=== PATIENT | male | born 1930 | race Caucasian/White ===

== ENCOUNTER 2017-01-19 06:59 | Inpatient (IN) | payer OTHER ==
[2017-01-05 11:15] VITALS: BMI 27.0
--- NOTE | 2017-01-05 11:43 | PAT Medication Instructions ---
Service Date Jan 05, 2017. Current Home Medication List Aspirin (Aspirin Ec), 81 MG PO NOON Pravastatin (Pravachol ), 40 MG PO NOON Tamsulosin Hcl (Flomax), 0.4 MG PO QPM Medication Instructions For Your Scheduled Surgery - Continue as directed: Aspirin (Aspirin Ec), 81 MG PO NOON (okay to continue per surgeon) Pravastatin (Pravachol ), 40 MG PO NOON Tamsulosin Hcl (Flomax), 0.4 MG PO QPM If you have any questions please call us at [phone] or [phone] or [phone]
--- NOTE | 2017-01-05 12:28 | DIAGNOSTIC IMAGING REPORT ---
CHEST 2 VIEWS ROUTINE CLINICAL HISTORY: pat preoperative evaluation COMPARISON STUDY: None FINDINGS: Mild bibasilar atelectasis. Lungs otherwise appear clear. No evidence for cardiac enlargement. IMPRESSION: Bibasilar atelectasis. Otherwise negative study The above report was generated using voice recognition software. It may contain grammatical, syntax or spelling errors. Electronically signed by: Kurtis Grover M.D. 01/05/2017 12:27 PM Dictated Date/Time: 01/05/2017 12:27 PM
[2017-01-05 12:59] LABS: BASO % 0.5 %; BASO ABS # 0.03 K/uL (0-0.2); COMPLETE YES; EOS % 2.8 %; HEMATOCRIT 44.5 % (42-52); IG% 0.3 %; LYMPH % 18.9 %; LYMPH ABS # 1.15 K/uL (1.2-3.4); MEAN CELL VOLUME 90.4 fL (80-100); MEAN CORPUSCULAR HEMOGLOBIN 30.1 pg (25-34); MEAN CORPUSCULAR HGB CONC 33.3 g/dl (32-36); MEAN PLATELET VOLUME 9.7 fL (7.4-10.4); MONO % 7.1 %; NEUT % 70.4 %; PLATELET COUNT 147 K/uL (130-400); RED BLOOD COUNT 4.92 M/uL (4.7-6.1); WHITE BLOOD COUNT 6.09 K/uL (4.8-10.8)
[2017-01-05 13:03] LABS: URINE APPEARANCE CLEAR (CLEAR); URINE BILIRUBIN NEG (NEG); URINE COLOR YELLOW; URINE EPITHELIAL CELL AUTO 0-5 /lpf (0-5); URINE NITRITE NEG (NEG); UROBILINOGEN NEG (NEG)
[2017-01-05 13:04] LABS: MANUAL MICROSCOPIC REQUIRED? NO; REVIEW REQ? NO
[2017-01-05 13:09] LABS: BUN/CREATININE RATIO 20.9 (10-20); CALCIUM 8.9 mg/dl (8.5-10.1); CREATININE 1.1 mg/dl (0.60-1.40); POTASSIUM 4.5 mmol/L (3.5-5.1); PROTHROMBIN TIME (PATIENT) 11.2 SECONDS (9.0-12.0)
--- NOTE | 2017-01-18 17:54 | HISTORY & PHYSICAL EXAMINATION ---
DATE OF ADMISSION: 01/19/2017 CHIEF COMPLAINT: Primary osteoarthritis of the right hip. HISTORY OF PRESENT ILLNESS: Dilip is a very pleasant 86-year-old male who has been dealing with chronic right hip pain for several years. X-rays and clinical examination were diagnostic for primary osteoarthritis of the right hip. After failing years of conservative treatment, he has elected to proceed with a right total hip arthroplasty. PAST MEDICAL HISTORY: Hyperlipidemia. PAST SURGICAL HISTORY: Significant for sinus surgery. ALLERGIES: None. MEDICATIONS: Include pravastatin 40 mg daily, tamsulosin 0.4 mg daily, and aspirin 81 mg daily. FAMILY HISTORY: Noncontributory. SOCIAL HISTORY: The patient is , rarely drinks, and is moderately active. REVIEW OF SYSTEMS: The patient complains of right hip pain. All other pertinent review of systems are negative. PHYSICAL EXAMINATION: GENERAL: He is awake, alert and oriented x3. He is in no apparent distress. He is very pleasant. HEENT: Pupils are equal, round and reactive to light. Extraocular movements intact. Oral mucosa is pink and moist. HEART: Regular rate per radial pulse. LUNGS: Mely symmetrically bilaterally with no audible breath sounds. ABDOMEN: Soft, nontender, nondistended. MUSCULOSKELETAL: On physical examination of the right hip, he has about 100 degrees of flexion, 30 degrees of external rotation, 20 degrees of internal rotation. He does have pain at end range of motion. He is a tall, thin man and he can lie flat. IMAGING: X-rays of the right hip do show advanced osteoarthritis of the hip with joint space narrowing and osteophyte formation. IMPRESSION: Primary osteoarthritis of the right hip. PLAN: We will proceed with an anterior right total hip arthroplasty using a Biomet Taperloc stem. Postoperatively, he will be started on aspirin 325 mg twice a day for DVT prophylaxis and kept in the hospital for postoperative medical management.
[2017-01-19] VITALS (7 sets, daily range): BP systolic 114–161; BP diastolic 60–82; PULSE 54–109; TEMP 36.2–37; O2SAT 91–98; Ht 193 cm; Wt 102.6 kg
[~2017-01-19] VITALS: Ht 193 cm; Wt 102.6 kg
[2017-01-19] MEDS: TRANEXAMIC ACID INJ 1,000 MG in SODIUM CHLORIDE 0.9% 100ML 100 ML IV SCH ×2 (06:00→06:30)
[~2017-01-19 06:59] MED LIST: ACETAMINOPHEN 500 MG TAB PO SCH; ASPI81TA28 PO; FAMOTIDINE 20 MG TAB PO SCH; GABAPENTIN 300 MG CAP PO SCH; LACTATED RINGER'S 1000ML 1,000 ML IV SCH; PRAV20TA PO; ROPIVACAINE 5MG/ML 30 ML 150 MG, BUPIVACAINE/EPINEPHR 0.5% MPF 30 ML, KETOROLAC TROMETH... INFIL SCH; TAMS0.4C38 PO; VANCOMYCIN INJ 1,500 MG in SODIUM CHLORIDE 0.9% 500ML 500 ML IV SCH
[2017-01-19] MEDS ORDERED: BUPIVACAINE 0.5 % 5 MG/1 ML PF 10ML VIAL ONE (07:50)
[2017-01-19] MEDS ORDERED: FENTANYL CITRATE INJ 50 MCG/1 ML 2 ML VIAL ONE (08:08)
[2017-01-19] MEDS ORDERED: PROPOFOL IV EMULSION 10 MG/ML 20 ML VIAL IV ONE ×2 (08:08→09:02)
[2017-01-19] MEDS ORDERED: MIDAZOLAM HCL 1 MG/ML 2ML VIAL ONE (08:08)
--- NOTE | 2017-01-19 09:42 | History & Physical Bridge Note ---
H&P Re-Evaluation Bridge Note: I have examined the patient, reviewed the History & Physical and in the interval since the performance of the History & Physical I have noted the following changes of clinical significance: No changes noted
[2017-01-19] MEDS ORDERED: BACITRACIN 50000 UNIT VIAL ONE (09:59)
[2017-01-19] MEDS ORDERED: ORTHO JOINT ANESTHETIC ONE (09:59)
[2017-01-19] MEDS ORDERED: NURSING VERBAL MED ORDER ONE ×2 (10:15→14:30)
[2017-01-19] MEDS ORDERED: PHENYLEPHRINE 100MCG/ML 5ML SYR ONE (11:19)
--- NOTE | 2017-01-19 12:10 | DIAGNOSTIC IMAGING REPORT ---
RIGHT HIP UNILATERAL 1 VIEW CLINICAL HISTORY: RT ANTERIOR TOTAL Right. Right hip prosthesis. COMPARISON STUDY: None. FINDINGS: Total fluoroscopy time is 43 seconds. 4 fluoroscopic spot images of the right hip. Initial images demonstrate severe osteoarthritis within the right hip. This is followed by placement of a right total hip arthroplasty. The hardware appears intact. No fracture or dislocation. IMPRESSION: Fluoroscopy provided for a right total hip arthroplasty. Electronically signed by: Jamar Crump M.D. 01/19/2017 12:09 PM Dictated Date/Time: 01/19/2017 12:08 PM
--- NOTE | 2017-01-19 12:26 | [facility] Post Operative Brief Note ---
Immediate Operative Summary Operative Date Jan 19, 2017. Pre-Operative Diagnosis Primary Osteoarthritis Right Hip Post-Operative Diagnosis Primary Osteoarthritis Right Hip Procedure(s) Performed Right Anterior Total Hip Arthroplasty Uncemented Surgeon Dr Finn Rasmussen Calciner Operator Helper Surgeon(s) Pieter Heredia Estimated Blood Loss 350ml Findings as above Specimens As per Surgeon A. Right Femoral Head Complication(s) None Disposition Recovery Room / PACU
[2017-01-19] MEDS ORDERED: ONDANSETRON INJ 2 MG/ML 2 ML VIAL IV PRN ×2 (12:30→13:00)
[2017-01-19] MEDS ORDERED: BISACODYL 10 MG SUPP PR PRN (12:30)
[2017-01-19] MEDS ORDERED: MoRPHine SULFATE 2 MG/ML CARP IV PRN (12:30)
[2017-01-19] MEDS ORDERED: MAGNESIUM HYDROXIDE SUSP 30 ML UDC PO PRN (12:30)
[2017-01-19] MEDS ORDERED: OXYCODONE HCL IR 5 MG TAB (IMMEDIATE RELEASE) PO PRN (12:30)
[2017-01-19] MEDS ORDERED: SILVER SULFADIAZINE 1% CR 50 GM JAR EXT PRN (12:30)
[2017-01-19] MEDS ORDERED: METOCLOPRAMIDE HCL INJ 5 MG/ML 2 ML VIAL IV PRN (12:30)
[2017-01-19] MEDS ORDERED: SOD PHOSPHATE/SOD BIPHOSPHATE ENEMA 132 ML BTL PR PRN (12:30)
[2017-01-19] MEDS ORDERED: DEXAMETHASONE SOD INJ 4 MG/ML VIAL ONE (12:38)
[2017-01-19] MEDS ORDERED: ONDANSETRON INJ 2 MG/ML 2 ML VIAL ONE (12:38)
--- NOTE | 2017-01-19 12:50 | OPERATIVE REPORT ---
DATE OF OPERATION: 01/19/2017 PREOPERATIVE DIAGNOSIS: Primary osteoarthritis of the right hip. PROCEDURE: Right total hip arthroplasty through an anterior approach. SURGEON: Dr. Finn Rasmussen. FINE HAIRER: Pieter Heredia PA-C, whose assistance was necessary for retraction and closure. ANESTHESIA: Spinal. COMPLICATIONS: None. CONDITION: Stable to PACU. IMPLANTS USED: I used a Biomet Taperloc total hip arthroplasty system with a size 18 press-fit Taperloc stem, a size 58 G7 cup with a single 20 mm screw and a 40 mm G7 liner and a 40 +3 ceramic head. INDICATIONS: Alex is a pleasant 86-year-old male who presented to my office with chronic bilateral hip pain, right greater than left. After failing extensive conservative treatment, he elected to undergo a total hip arthroplasty. X-rays and clinical examination were diagnostic for primary osteoarthritis of the hip. OPERATION AND FINDINGS: On 01/19/2017 he arrived at [facility] for the above procedure. He was seen in the preoperative holding area and the operative extremity was identified and signed. He was given a preoperative antibiotic and a spinal anesthetic. He was taken back to the operating room, laid on the table in supine position and given basic sedation. His right leg was then brought out to a Purist leg positioner. The right hip was then prepped and draped in sterile fashion. Time-out was done and the patient and operative extremity was properly identified. An anterior approach was used. Dissection was taken down through the tensor fascia and the tensor was retracted laterally and the sartorius retracted medially. The hip capsule was exposed. The reflected head of the rectus was slightly teased off the anterior capsule. The capsule was then incised for later closure. The head was exposed. The femoral neck was resected with an oscillating saw. The femoral head was then removed. The acetabulum was exposed. Time was spent doing a complete labral release. Sequential reaming up to a size 57 reamer was done. Appropriate reaming was checked under fluoroscopy. A size 58 G7 cup was then impacted into place. A single 20 mm screw was placed followed by an E-poly liner. The femur was then exposed. Sequential broaching up to a size 18 broach was done. Off that broach, several trial heads were used but +3 neck seemed to give the appropriate leg lengths under fluoroscopy. The broaches were removed and the final implant was impacted into place followed by a 40 +3 ceramic head. The hip was reduced and final x-rays were taken. I was happy with the overall alignment. The wound was then irrigated with 3 liters of normal saline solution. All surrounding soft tissues were injected with orthopedic pain control cocktail. The capsule was then closed with #1 Vicryl suture. A drain was placed. The fascia was then closed with #1 PDS and skin was closed with 2-0 Vicryl and 0 Prolene suture and a Prineo dressing. He was then placed in a soft dressing and taken to the postanesthesia care unit in stable condition. He tolerated the procedure well. I attest to the content of the Intraoperative Record and any orders documented therein. Any exception s are noted below.
[2017-01-19] MEDS ORDERED: FLUMAZENIL 0.1 MG/1 ML 10 ML VIAL IV PRN (13:00)
[2017-01-19] MEDS ORDERED: PROMETHAZINE HCL INJ 12.5 MG in SODIUM CHLORIDE 0.9% 50ML 50 ML IV PRN (13:00)
[2017-01-19] MEDS ORDERED: EpHEDrine SULFATE INJ 50 MG/ML AMP IV PRN (13:00)
[2017-01-19] MEDS ORDERED: NALOXONE HCL 0.4 MG/1 ML VIAL/CARP IV PRN (13:00)
[2017-01-19] MEDS ORDERED: ATROPINE SULFATE 0.1 MG/ML 5ML SYR IV PRN (13:00)
--- NOTE | 2017-01-19 13:01 | DIAGNOSTIC IMAGING REPORT ---
RIGHT PELVIS/UNILATERAL HIP 1 VIEW CLINICAL HISTORY: 86 years-old Male presenting with right hip degenerative joint disease status post total right hip arthroplasty. TECHNIQUE: Single frontal view of the pelvis and crosstable lateral view of the right hip were obtained. COMPARISON: Fluoroscopic images performed earlier today. FINDINGS: Postsurgical changes of total right hip arthroplasty. Expected soft tissue emphysema and a surgical drain are in place. No hardware complication. No acute fracture or malalignment. Degenerative changes of the left hip joint noted including joint space loss, osteophytosis, and subchondral sclerosis. IMPRESSION: Expected postoperative changes status post right total hip arthroplasty. Electronically signed by: Joaquín Sevilla M.D. 01/19/2017 12:59 PM Dictated Date/Time: 01/19/2017 12:58 PM
--- NOTE | 2017-01-19 13:16 | Anesthesiology Progress Note ---
Anesthesia Post Op Note Date & Time Jan 19, 2017 at 13:15 Vital Signs Pain Intensity: 0 Vital Signs Past 12 Hours Date Time Temp Pulse Resp B/P (MAP) Pulse Ox O2 Delivery O2 Flow Rate FiO2 01/19/17 12:44 36.3 71 12 123/88 94 Room Air 2 01/19/17 07:52 36.4 70 18 161/82 98 Room Air Notes Mental Status: alert / awake / arousable, participated in evaluation Pt Amnestic to Procedure: Yes Nausea / Vomiting: adequately controlled Pain: adequately controlled Airway Patency, RR, SpO2: stable & adequate BP & HR: stable & adequate Hydration State: stable & adequate Neuraxial Anesthesia: was administered, sensory block is resolving Anesthetic Complications: no major complications apparent
[2017-01-19] MEDS: ACETAMINOPHEN IV 1,000 MG in EMPTY BAG 0 ML IV SCH ×2 (14:27→22:23)
[2017-01-19] MEDS: SODIUM CHLORIDE 0.9% 1000ML 1,000 ML IV SCH ×2 (14:27→22:27)
[2017-01-19] MEDS: KETOROLAC TROMETHAMINE 15 MG/ML VIAL IV. SCH ×2 (18:17→23:46)
[2017-01-19] MEDS ORDERED: VANCOMYCIN INJ 1,500 MG in SODIUM CHLORIDE 0.9% 500ML 500 ML IV SCH (20:00)
[2017-01-19] MEDS: ASPIRIN 325 MG ECTAB PO SCH (20:23)
[2017-01-19] MEDS: TAMSULOSIN HCL 0.4 MG CAP PO SCH (20:23)
[2017-01-19] MEDS: DOCUSATE SODIUM 100 MG CAP PO SCH (20:23)
[2017-01-19] MEDS: SENNA 8.6 MG TAB PO SCH (20:24)
[2017-01-20 03:17] VITALS: BP 114/58; PULSE 70; TEMP 36.7; O2SAT 92
[2017-01-20] MEDS: KETOROLAC TROMETHAMINE 15 MG/ML VIAL IV. SCH ×4 (05:52→23:55)
[2017-01-20] MEDS: ACETAMINOPHEN IV 1,000 MG in EMPTY BAG 0 ML IV SCH (05:53)
[2017-01-20 06:18] LABS: HEMATOCRIT 31.2 % (42-52); MEAN CORPUSCULAR HEMOGLOBIN 31.2 pg (25-34); MEAN CORPUSCULAR HGB CONC 34.3 g/dl (32-36); RED BLOOD COUNT 3.43 M/uL (4.7-6.1); WHITE BLOOD COUNT 7.31 K/uL (4.8-10.8)
[2017-01-20 06:41] LABS: MEAN PLATELET VOLUME 9.2 fL (7.4-10.4); PLATELET COUNT 92 K/uL (130-400)
[2017-01-20 06:42] LABS: BASO % 0.1 %; BASO ABS # 0.01 K/uL (0-0.2); COMPLETE YES; EOS % 0.3 %; IG% 0.1 %; LYMPH % 10.8 %; LYMPH ABS # 0.79 K/uL (1.2-3.4); MONO % 7.3 %; NEUT % 81.4 %; PLT ESTIMATE DECREASED
[2017-01-20 06:54] LABS: BUN/CREATININE RATIO 20.7 (10-20); POTASSIUM 4.2 mmol/L (3.5-5.1)
[2017-01-20] MEDS: SODIUM CHLORIDE 0.9% 1000ML 1,000 ML IV SCH (07:42)
[2017-01-20 07:55] VITALS: BP 122/66; PULSE 74; TEMP 37; O2SAT 94
[2017-01-20 08:10] VITALS: O2SAT 94
[2017-01-20] MEDS: PRAVASTATIN SOD 40 MG TAB PO SCH (08:58)
[2017-01-20] MEDS: DOCUSATE SODIUM 100 MG CAP PO SCH ×2 (08:58→21:25)
[2017-01-20] MEDS: ASPIRIN 325 MG ECTAB PO SCH ×2 (08:58→21:25)
[2017-01-20] MEDS: PANTOprazole SOD 40 MG TAB PO SCH (08:58)
[2017-01-20] MEDS: MULTIVITAMIN TAB PO SCH (08:58)
--- NOTE | 2017-01-20 09:03 | PROGRESS NOTE ---
DATE: 01/20/2017 CHIEF COMPLAINT: Status post right total hip arthroplasty postop day #1. PROGRESS: Dilip was seen and examined at bedside today. Overall, he is doing fairly well. He was up ambulating around the nurses' station last night. He has no complaints. PHYSICAL EXAMINATION: RIGHT HIP: The dressing is clean and dry and the drain is to suction. He has active dorsiflexion and plantarflexion of his right ankle and sensation is intact throughout. DATA: He has an H&H today of 10.7 and 31.2. His glucose is 140. His vital signs are all stable on room air and he is voiding on his own. X-rays postoperatively of the hip show the prosthesis to be in anatomic alignment without any evidence of fracture or dislocation was seen. IMPRESSION: Status post right total hip arthroplasty postop day #1. PLAN: At this point, he is doing fairly well. He will be up and ambulating today with physical therapy. He is on aspirin 325 mg twice a day for DVT prophylaxis. I plan to see him tomorrow morning and discharge him to home with home health.
[2017-01-20 11:56] VITALS: BP 126/74; PULSE 76; TEMP 36.9; O2SAT 94
[2017-01-20] MEDS: ACETAMINOPHEN 500 MG TAB PO SCH ×2 (13:40→21:50)
[2017-01-20 15:28] VITALS: BP 125/64; PULSE 81; TEMP 36.6; O2SAT 93
[2017-01-20] MEDS: TAMSULOSIN HCL 0.4 MG CAP PO SCH (21:49)
[2017-01-20] MEDS: SENNA 8.6 MG TAB PO SCH (21:50)
[2017-01-21 00:22] VITALS: BP 120/60; PULSE 90; TEMP 36.8; O2SAT 96
[2017-01-21] MEDS: KETOROLAC TROMETHAMINE 15 MG/ML VIAL IV. SCH ×2 (05:31→07:02)
[2017-01-21] MEDS: ACETAMINOPHEN 500 MG TAB PO SCH (05:32)
[2017-01-21] MEDS ORDERED: ASPEC325 PO (06:26)
[2017-01-21] MEDS ORDERED: RXC5 PO (06:26)
--- NOTE | 2017-01-21 06:27 | Discharge Instructions ---
Discharge Instructions Date of Service Jan 21, 2017. Admission Reason for Admission: Right Hip Degenerative Joint Disease Discharge Discharge Diagnosis / Problem: Right Total Hip Discharge Goals Goal(s): Decrease discomfort Activity Recommendations Activity Limitations: as noted below . Instructions / Follow-Up Instructions / Follow-Up Activity and Therapy Recommendations: * If you are using [facility] then Physical Therapy will be provided until they feel you are ready to start Outpatient Physical Therapy. If you are not using a Home Health agency then Outpatient Physical Therapy should start about 3-5 days from your day of surgery. Therapy will last about 3-6 weeks * You were shown a series of exercises in the hospital. Do these exercises three times each day including the exercises you were shown in physical therapy. * Get up and walk several times each day.~ For the first four weeks, try not to stand or walk for more than one hour at a time. If you do stand or walk for more than one hour, you will not hurt anything, but your leg will likely swell.~ ~ * As you feel comfortable, you may change from the walker or crutches to a cane and~then to independent walking. Medications: * Narcotic You will likely be sent home from the hospital with a prescription for the narcotic pain medication that worked best throughout your stay. * Aspirin Most patients will be required to take Aspirin 325mg twice a day for 6 weeks after surgery. This is obtained [id number] and a prescription is not necessary. * Other medications may be prescribed for specific circumstances. If you have any questions, please call the office at . * Resume previous home medications unless otherwise instructed TEDs/Elastic Stockings: The white elastic stockings help limit swelling and prevent blood clots from forming in your legs. The more you wear them, the more they work. Wear them for six weeks. Dressing Care: You will likely have a Prineo dressing covering your incision. This looks like a glued on clear mesh dressing. Do not remove this dressing until you follow- up in my office in 2-3 weeks. Its pretty hard to peel it off. You may leave the Prineo dressing uncovered or cover it if it is draining a little bit. No further dressing care is required Showering: You may shower 3 days from the day of surgery. Leave the Prineo dressing intact and let the soapy shower water run over it. Do not scrub or soak the dressing or the incision. Things To Watch For: * Drainage from the incision site that occurs more than one week after your surgery. * Increased redness at the incision site. * Fever above 102 degrees Fahrenheit. * Unusual chest pain or shortness of breath. * [facility] at with any of the above problems Follow-Up Visit: Follow-up with Dr. Rasmussen 2-3 weeks after your day of surgery. An appointment was probably scheduled when you signed-up for surgery in the office. If you have any questions call Office Instructions: More detailed instructions as well as Frequently Asked Questions were provided in a folder by our office when you signed-up for surgery. Please review these instructions when you get home. If you have any further questions or concerns, please feel free to call the office at [phone] Current Hospital Diet Patient's current hospital diet: Regular Diet Discharge Diet Recommended Diet: Regular Diet Procedures Procedures Performed: Right Anterior Total Hip Arthroplasty Uncemented Pending Studies Studies pending at discharge: no Medical Emergencies . Who to Call and When: Medical Emergencies: If at any time you feel your situation is an emergency, please call [phone] immediately. . Non-Emergent Contact Non-Emergency issues call your: Surgeon Call Non-Emergent contact if: wound has increased drainage, wound has increased redness . "Provider Documentation" section prepared by Finn Rasmussen. . VTE Core Measure Inpt VTE Proph given/why not?: Other Anticoagulation (Aspirin 325 twice a day for 6 weeks)
--- NOTE | 2017-01-21 07:24 | PROGRESS NOTE ---
DATE: 01/21/2017 CHIEF COMPLAINT: Status post right total hip arthroplasty postop day #2. PROGRESS: Alex was seen and examined at bedside today. Overall, he is doing very well. He is not having much pain in the hip. He is ambulating well with physical therapy. He has no complaints. PHYSICAL EXAMINATION: RIGHT HIP: The dressing has been changed and drain has been pulled. His incision is clean and dry. He is neurovascularly intact. IMPRESSION: Status post right total hip arthroplasty postop day #2. PLAN: At this point he is doing very well. He will get more physical therapy this morning and as long as he continues to do well he will be discharged home today.
--- NOTE | 2017-01-21 07:26 | DISCHARGE SUMMARY ---
DATE OF DISCHARGE: 01/21/17 DISCHARGE DIAGNOSIS: Primary osteoarthritis of the right hip. PROCEDURE: Right total hip arthroplasty on 01-19-[address] Finn Rasmussen. DISCHARGE INSTRUCTIONS: 1. Aspirin 325 mg twice a day for 6 weeks. 2. Oxycodone 5 mg every 4 hours as needed for pain. 3. Pravachol 40 mg daily. 4. Flomax 0.4 mg daily. 5. Follow up with Dr. Rasmussen in 2 weeks. 6. Call the office of Dr. Rasmussen with any questions or concerns. HOSPITAL COURSE: Dilip is a pleasant 86-year-old male who presented to my office with chronic right hip pain. X-rays and clinical examination were diagnostic for primary osteoarthritis of the right hip. After failing extensive conservative treatment, he elected to undergo a right total hip arthroplasty. On 01/19/2017 he arrived at [facility] and underwent a right hip replacement without complications. Postoperatively, he was started on aspirin 325 mg twice a day for DVT prophylaxis and discharged to general orthopedic floor. Overall, his hospital course was uneventful. On postop day #1, his H&H was stable at 10.7 and 31.2. He was seen by physical therapy and able to ambulate well and his pain was well controlled. On postop day #2, the dressing was changed, the drain was pulled. He was able to still ambulate well with physical therapy and was subsequently discharged to home with the above instructions.
[2017-01-21 07:28] VITALS: BP 134/68; PULSE 64; TEMP 37.1; O2SAT 94
[2017-01-21 07:31] VITALS: O2SAT 94
[2017-01-21] MEDS: MULTIVITAMIN TAB PO SCH (08:36)
[2017-01-21] MEDS: PRAVASTATIN SOD 40 MG TAB PO SCH (08:36)
[2017-01-21] MEDS: PANTOprazole SOD 40 MG TAB PO SCH (08:36)
[2017-01-21] MEDS: ASPIRIN 325 MG ECTAB PO SCH (09:06)
[2017-01-21] MEDS: DOCUSATE SODIUM 100 MG CAP PO SCH (09:06)
[2017-01-21 09:23] VITALS: BP 134/68; PULSE 64; TEMP 37.1; O2SAT 94
[2017-02-16] MEDS ORDERED: CLIN1CAP51 PO (09:44)
[2017-02-19] MEDS ORDERED: CIPR1TAB11 PO (10:19)
== END 2017-01-21 10:57 | disposition home health service (06) | DRG 470 ==
LOC: C.ACU 06:59 → C.3E 09:00 → ENRESERV 13:03
PROVIDERS: ADMIT Orthopaedic Surgery; ATTEND Orthopaedic Surgery
PROC: 0SR904A Replacement of Right Hip Joint with Ceramic on Polyethylene Synthetic Substitute, Uncemented, Open Approach (ICD-10-PCS; principal; 2017-01-19 09:30)
DX: M16.11 Unilateral primary osteoarthritis, right hip (principal); E66.9 Obesity, unspecified; E78.5 Hyperlipidemia, unspecified; M54.5 Low back pain; G43.909 Migraine, unspecified, not intractable, without status migrainosus; N40.0 Benign prostatic hyperplasia without lower urinary tract symptoms; Z86.79 Personal history of other diseases of the circulatory system; Z68.27 Body mass index [BMI] 27.0-27.9, adult; Z79.899 Other long term (current) drug therapy; Z79.82 Long term (current) use of aspirin